=== PATIENT | female | born 1935 ===

== ENCOUNTER 2019-09-04 13:02 | Outpatient (NON) | payer MEDICARE, SELFPAY ==
[2019-09-04 13:40] LABS: Basophils Absolute Auto 0.04 K/mm3 (0.00-0.10); Basophils Percent Auto 0.9 % (0.0-1.0); Eosinophils Absolute Auto 0.13 K/mm3 (0.02-0.50); Hematocrit 35.8 % (35.0-42.0); Hemoglobin 11.5 g/dL (11.7-13.8); Immature Granulocyte Absolute 0.01 K/mm3 (0.00-0.00); Immature Granulocyte Percent A 0.2 % (0.0-0.0); Lymphocytes Absolute Auto 1.02 K/mm3 (1.10-4.50); Lymphocytes Percent Auto 23.9 % (18.0-42.0); Mean Corpuscular HGB Conc 32.1 g/dL (32.0-36.0); Mean Corpuscular Hemoglobin 28.7 pg (27.0-31.0); Mean Corpuscular Volume 89.3 fL (78.0-102.0); Mean Platelet Volume 10.8 fl (9.2-11.8); Monocytes Absolute Auto 0.38 K/mm3 (0.10-0.90); Monocytes Percent Auto 8.9 % (2.0-11.0); Neutrophils Absolute Auto 2.7 K/mm3 (1.7-7.2); Neutrophils Percent Auto 63.1 % (50.0-70.0); Platelet Count Result 144 K/mm3 (150-420); Red Blood Count 4.01 M/mm3 (4.20-5.40); Red Cell Distribution Width 15.4 % (11.6-14.4); White Blood Count 4.3 K/mm3 (4.8-10.8)
[2019-09-04 13:59] LABS: Alanine Aminotransferase 20 U/L (14-59); Albumin Level 2.7 g/dL (3.4-5.0); Alkaline Phosphatase 59 U/L (46-116); Anion Gap 9.6 mmol/L (7-16); Aspartate Amino Transferase 18 U/L (15-37); Bilirubin,Total 0.6 mg/dL (0.00-1.00); Blood Urea Nitrogen 18 mg/dL (7-18); Calcium 8.5 mg/dL (8.5-10.1); Carbon Dioxide 28 mmol/L (21-32); Chloride 107 mmol/L (98-108); Estimated Glomerular Filt Rate 50; Glucose 154 mg/dL (70-99); Osmolality Calculated 294 mOsm/kg (285-295); Potassium 4.6 mmol/L (3.5-5.1); Sodium 140 mmol/L (136-145)
== END 2019-09-04 13:03 ==
DX: I13.0 Hypertensive heart and chronic kidney disease with heart failure and stage 1 through stage 4 chronic kidney disease, or unspecified chronic kidney disease (principal); I50.9 Heart failure, unspecified; N18.3 Chronic kidney disease, stage 3 (moderate); J44.9 Chronic obstructive pulmonary disease, unspecified
CPT/HCPCS: 36415; 80053; 85025

== ENCOUNTER → 2022-01-28 10:33 | Outpatient (CLI) | payer MEDICARE, SELFPAY ==
--- NOTE | ~2022-01-28 | MR_ITS ---
MRI of the brain Clinical History: Personality change Technique: Axial and sagittal T1-weighted images were acquired. These were followed by axial T2-weigh meghan, diffusion weighted, gradient, and FLAIR images. Following intravenous administration of 17 cc Mu ltiHance gadolinium, T1-weighted fat-sat imaging was performed in the axial and coronal and sagittal planes. Findings: There is a 2.3 x 1.8 x 2.0 cm extra-axial enhancing mass in the right posterior fossa, with local mass effect upon the right cerebellar hemisphere. There is low signal on gradient images and T 2 images, which could reflect areas of calcification. No acute infarct or acute intracranial hemorrha ge identified. There is a tiny additional probable extra-axial enhancing lesion along the left pariet al convexity (series 12 image 16). There are extensive chronic white matter changes throughout the wh ite matter bilaterally. Ventricles and subarachnoid spaces are unremarkable. Orbits are unremarkable. There is extensive bila teral frontal, ethmoid, sphenoid, and maxillary sinus disease. There is fluid in bilateral mastoid ai r cells. Major intracranial flow voids appear intact. Sagittal midline structures are intact. IMPRESSION: 2.3 x 1.8 x 2.0 cm meningioma in the right posterior fossa, as detailed above. Probable additional tiny meningioma along the left parietal convexity, as detailed above. Diffuse chronic microvascular ischemic changes throughout the white matter. Pansinusitis. Reviewed, dictated and finalized at [facility]. LE PROCESSING MACHINE OPERATOR IMPRESSION: 2.3 x 1.8 x 2.0 cm meningioma in the right posterior fossa, as detailed above. Probable additional tiny meningioma along the left parietal convexity, as detai led above. Diffuse chronic microvascular ischemic changes throughout the white matter. Pansinusitis.
== END ==
PROVIDERS: PCP Internal Medicine; Visit Provider Internal Medicine
DX: F68.8 Other specified disorders of adult personality and behavior (principal)
CPT/HCPCS: 70553; A9577